=== PATIENT | female | born 1975 | race Caucasian/White ===

== ENCOUNTER → 2016-04-12 | Outpatient (REF) | payer BC | LOC: M LAB REF 12:52 | PROVIDERS: ATTEND Advanced Practice Midwife | DX: Z12.4 Encounter for screening for malignant neoplasm of cervix (principal) ==

== ENCOUNTER → 2016-04-13 | Outpatient (CLI) | payer BC ==
--- NOTE | 2016-04-13 10:51 | REPMRS ---
Patient History The patient states she had a clinical breast exam in 03/2016. Family history of prostate cancer in maternal uncle at age 50 or over. Saline implants in both breasts, 2007. Took hormonal contraceptives for 10 years. Digital Woman Screen Mammo: April 13, 2016 - Exam #: [id number] Bilateral CC and MLO view(s) were taken. Technologist: Soumya Rodríguez Technologist Prior study comparison: January 10, 2014, bilateral bilat screen digital mammo, performed at [facility] ([facility]). August 17, 2012, bilateral bilat screen digital mammo, performed at [facility] ([facility]). FINDINGS: There are scattered fibroglandular densities. There has been no change in the appearance of the mammogram from the prior studies. There is a moderate amount of residual fibroglandular tissue which is fairly symmetric. There is no interval development of dominant mass, architectural distortion, or clustered microcalcification suggestive of malignancy. The bilateral breast implants are symmetric and intact as before. Scattered lymph nodes are seen in the axilla. No significant changes when compared with prior studies. ASSESSMENT: BI-RADS/ACR category 2 mammogram. Benign finding(s). Recommendation Routine screening mammogram in 1 year (for women over age 40). This mammogram was interpreted with the aid of an FDA-approved computer-aided dectection system. A. Negative x-ray reports should not delay biopsy if a dominant or clinically suspicious mass is present. B. Four to eight percent of cancers are not identified by mammography. C. Adenosis and dense breast may obscure an underlying neoplasm. Electronically Signed By: Joshua Hancock MD 04/13/16 [id number]
== END ==
LOC: M WHC 09:01
PROVIDERS: ATTEND Advanced Practice Midwife
DX: Z12.31 Encounter for screening mammogram for malignant neoplasm of breast (principal)

== ENCOUNTER → 2016-04-13 | Outpatient (CLI) | payer BC ==
--- NOTE | 2016-04-13 11:20 | REP ---
Clinical: Hyponatremia . Comparison: 07/31/2013 . Technique: PA and lateral. Findings: The mediastinum and cardiac silhouette are normal. The lung shore are clear and without acute consolidation, effusion, or pneumothorax. The skeletal structures are intact and normal. Impression: 1. No acute cardiopulmonary process. Signed by Daniel Cox MD 04/13/2016 11:11 A
[2016-04-13 11:23] LABS: MEAN CORPUSCULAR HEMOGLOBIN 30.6 pg (27.0-33.0); MEAN CORPUSCULAR HGB CONC 33.8 g/dl (32.0-36.5); MEAN CORPUSCULAR VOLUME 90.5 fl (80.0-96.0); RED CELL DISTRIBUTION WIDTH 12.1 % (11.5-14.5); WHITE BLOOD COUNT 7.2 K/mm3 (4.0-10.0)
[2016-04-13 11:42] LABS: ALBUMIN 3.6 GM/DL (3.2-5.2); ALBUMIN/GLOBULIN RATIO 1.03 (1.00-1.93); ALKALINE PHOSPHATASE 48 U/L (45-117); ALT/SGPT 15 U/L (12-78); ANION GAP 6 MEQ/L (8-16); AST/SGOT 13 U/L (15-37); BILIRUBIN,TOTAL 0.5 MG/DL (0.2-1.0); BLOOD UREA NITROGEN 10 MG/DL (7-18); CALCIUM LEVEL 8.3 MG/DL (8.5-10.1); CARBON DIOXIDE LEVEL 28 MEQ/L (21-32); CHLORIDE LEVEL 107 MEQ/L (98-107); CHOLESTEROL LEVEL 234 MG/DL (<200); CREATININE FOR GFR 0.76 MG/DL (0.55-1.02); GLOMERULAR FILTRATION RATE > 60.0 (>58); GLUCOSE, FASTING 86 MG/DL (70-105); PERCENT SATURATION 27.8 % (13.2-37.4); POTASSIUM SERUM 4.3 MEQ/L (3.5-5.1); SODIUM LEVEL 141 MEQ/L (136-145); TOTAL IRON BINDING CAPACITY 306 UG/DL (250-450); TOTAL PROTEIN 7.1 GM/DL (6.4-8.2); TRIGLYCERIDES LEVEL 67 MG/DL (<150)
--- NOTE | 2016-04-13 14:01 | ECGEPIP ---
Stationary ECG Study [facility] Test Date: 2016-04-13 Pat Name: RADHA RICKS Department: Room: - Gender: F Bench Tool Maker: YOLANDA : 1975 Requested By: Brian Segura Order Number: [id number] Reading MD: Bashir Doshi Measurements Intervals [place] Rate: 60 P: 25 WA: 124 QRS: 80 QRSD: 86 T: 52 QT: 394 QTc: 396 Interpretive Statements SINUS RHYTHM Poor R-wave progression, low precordial voltages. Electronically Signed On 04-13-2016 14:01:17 EST by Bashir Doshi
== END ==
LOC: M LAB 10:27
PROVIDERS: ATTEND Family Medicine
DX: D64.9 Anemia, unspecified (principal); J45.909 Unspecified asthma, uncomplicated

== ENCOUNTER → 2017-07-03 | Outpatient (CLI) | payer BC | LOC: M WHC 07:56 | DX: Z12.31 Encounter for screening mammogram for malignant neoplasm of breast (principal); Z92.0 Personal history of contraception; Z98.82 Breast implant status | CPT/HCPCS: 77067 ==

== ENCOUNTER → 2017-08-01 | Outpatient (CLI) | payer BC ==
[2017-08-01 09:23] LABS: HEMATOCRIT 42.4 % (36.0-47.0); HEMOGLOBIN 14.2 g/dl (12.0-15.5); MEAN CORPUSCULAR HEMOGLOBIN 29.5 pg (27.0-33.0); MEAN CORPUSCULAR HGB CONC 33.5 g/dl (32.0-36.5); MEAN CORPUSCULAR VOLUME 88.1 fl (80.0-96.0); PLATELET COUNT, AUTOMATED 252 10^3/uL (150-450); RED BLOOD COUNT 4.81 10^6/uL (4.00-5.40); RED CELL DISTRIBUTION WIDTH 12.7 % (11.5-14.5)
[2017-08-01 09:42] LABS: ESTIMATED AVERAGE GLUCOSE 91 MG/DL (60-110); HEMOGLOBIN A1c 4.8 %
[2017-08-01 09:47] LABS: TOTAL 25(OH) VITAMIN D 22.8 NG/ML (30.0-100.0)
[2017-08-01 09:48] LABS: ALBUMIN 3.8 GM/DL (3.2-5.2); ALBUMIN/GLOBULIN RATIO 1.15 (1.00-1.93); ALKALINE PHOSPHATASE 41 U/L (45-117); ALT/SGPT 22 U/L (12-78); ANION GAP 9 MEQ/L (8-16); AST/SGOT 15 U/L (7-37); BILIRUBIN,TOTAL 0.6 MG/DL (0.2-1.0); BLOOD UREA NITROGEN 11 MG/DL (7-18); CALCIUM LEVEL 8.6 MG/DL (8.5-10.1); CARBON DIOXIDE LEVEL 24 MEQ/L (21-32); CHLORIDE LEVEL 107 MEQ/L (98-107); CHOLESTEROL LEVEL 240 MG/DL (<200); CREATININE FOR GFR 0.76 MG/DL (0.55-1.30); GLOMERULAR FILTRATION RATE > 60.0 (>58); GLUCOSE, FASTING 88 MG/DL (70-100); HDL CHOLESTEROL 57 MG/DL (>40); IRON (FE) 94 UG/DL (50-170); LDL CHOLESTEROL 164.4 MG/DL (<100); NON-HDL-C 183 MG/DL; PERCENT SATURATION 33.5 % (13.2-45.0); POTASSIUM SERUM 4.4 MEQ/L (3.5-5.1); SODIUM LEVEL 140 MEQ/L (136-145); TOTAL IRON BINDING CAPACITY 281 UG/DL (250-450); TOTAL PROTEIN 7.1 GM/DL (6.4-8.2); TRIGLYCERIDES LEVEL 93 MG/DL (<150)
== END ==
LOC: M LAB 08:45
DX: R53.83 Other fatigue (principal); D64.9 Anemia, unspecified

== ENCOUNTER → 2018-08-03 | Outpatient (CLI) | payer BC ==
[2018-08-03 09:41] LABS: HEMATOCRIT 39.6 % (36.0-47.0); HEMOGLOBIN 13.1 g/dl (12.0-15.5); MEAN CORPUSCULAR HEMOGLOBIN 29.4 pg (27.0-33.0); MEAN CORPUSCULAR HGB CONC 33.1 g/dl (32.0-36.5); PLATELET COUNT, AUTOMATED 282 10^3/uL (150-450); RED BLOOD COUNT 4.45 10^6/uL (4.00-5.40); WHITE BLOOD COUNT 8.3 10^3/uL (4.0-10.0)
[2018-08-03 10:13] LABS: ALBUMIN 3.7 GM/DL (3.2-5.2); ALT/SGPT 27 U/L (12-78); BILIRUBIN,TOTAL 0.5 MG/DL (0.2-1.0); BLOOD UREA NITROGEN 13 MG/DL (7-18); CALCIUM LEVEL 8.7 MG/DL (8.5-10.1); CARBON DIOXIDE LEVEL 28 MEQ/L (21-32); CHLORIDE LEVEL 106 MEQ/L (98-107); CHOLESTEROL LEVEL 186 MG/DL (<200); CHOLESTEROL RISK RATIO 2.952 (<5); CREATININE FOR GFR 0.76 MG/DL (0.55-1.30); GLOMERULAR FILTRATION RATE > 60.0 (>58); GLUCOSE, FASTING 78 MG/DL (70-100); HDL CHOLESTEROL 63 MG/DL (>40); LDL CHOLESTEROL 110 MG/DL (<100); NON-HDL-C 123 MG/DL; POTASSIUM SERUM 4.6 MEQ/L (3.5-5.1); SODIUM LEVEL 140 MEQ/L (136-145); THYROID STIMULATING HORMONE 0.809 uIU/ML (0.358-3.740); TOTAL PROTEIN 7.1 GM/DL (6.4-8.2); TRIGLYCERIDES LEVEL 64 MG/DL (<150)
--- NOTE | 2018-08-03 10:35 | REP ---
Chest two views HISTORY: Anemia Comparison: 04/13/2016 The lungs are clear. The heart is normal in size. The pulmonary vasculature is normal in appearance. The bony structure is intact. IMPRESSION: No acute disease. Electronically Signed by Ty William MD 08/03/2018 10:26 A
[2018-08-03 12:04] LABS: TOTAL 25(OH) VITAMIN D 42.2 NG/ML (30.0-100.0)
--- NOTE | 2018-08-04 00:28 | ECGEPIP ---
[facility] Test Date: 2018-08-03 Pat Name: RADHA RICKS Department: Room: - Gender: Female [employer]: BO : 1975 Requested By: Brian Segura Order Number: [id number] Reading MD: Bashir Mina Measurements Intervals [place] Rate: 65 P: 57 PA: 131 QRS: 77 QRSD: 82 T: 53 QT: 379 QTc: 397 Interpretive Statements SINUS RHYTHM Baseline artifact Electronically Signed on 08-04-2018 0:28:18 EDT by Bashir Mina
== END ==
LOC: M LAB 08:56
PROVIDERS: ATTEND Family Medicine
DX: D64.9 Anemia, unspecified (principal); E03.9 Hypothyroidism, unspecified

== ENCOUNTER → 2018-08-31 | Outpatient (CLI) | payer BC ==
--- NOTE | 2018-08-31 10:53 | REPMRS ---
Patient History The patient states she had a clinical breast exam in 08/2018. Family history of prostate cancer at age 50 or over in maternal uncle, breast cancer in maternal grandmother. Saline implants in both breasts, 2007. Took hormonal contraceptives for 10 years. 3D TOMOSYNTHESIS WAS PERFORMED. [facility]%. Digital Woman Screen Mammo: August 31, 2018 - Exam #: [id number] Bilateral MLO, CC, CCID, and MLOID view(s) were taken. Technologist: Sonia Heredia, Technologist Prior study comparison: July 03, 2017, digital woman screen mammo performed at [facility]. April 13, 2016, digital woman screen mammo performed at [facility]. FINDINGS: The breast tissue is heterogeneously dense. This may lower the sensitivity of mammography. There has been no change in the appearance of the mammogram from the prior studies. There is a moderate amount of residual fibroglandular tissue which is fairly symmetric. There is no interval development of dominant mass, areas of architectural distortion, or clustered microcalcification typical of malignancy. Assessment: BI-RADS/ACR category 1 mammogram. Negative Mammogram. Recommendation Routine screening mammogram in 1 year (for women over age 40). This mammogram was interpreted with the aid of an FDA-approved computer-aided dectection system. Electronically Signed By: Armand Marie MD 08/31/18 1639
== END ==
LOC: M WHC 07:41
PROVIDERS: ATTEND Advanced Practice Midwife
DX: Z12.31 Encounter for screening mammogram for malignant neoplasm of breast (principal); Z98.82 Breast implant status

== ENCOUNTER → 2018-08-31 | Outpatient (REF) | payer BC ==
[2018-09-05 14:07] LABS: HPV HYBRID CAPTURE II Negative (Negative)
== END ==
LOC: M LAB REF 17:52
PROVIDERS: ATTEND Advanced Practice Midwife
DX: Z12.4 Encounter for screening for malignant neoplasm of cervix (principal); R87.610 Atypical squamous cells of undetermined significance on cytologic smear of cervix (ASC-US)
CPT/HCPCS: 87624; G0123

== ENCOUNTER → 2019-01-09 | Outpatient (REF) | payer BC | LOC: M LAB REF 17:16 | PROVIDERS: ATTEND Advanced Practice Midwife | DX: R30.0 Dysuria (principal) ==

== ENCOUNTER → 2019-07-01 | Outpatient (CLI) | payer BC ==
--- NOTE | 2019-07-02 03:32 | REP ---
Clinical: Abnormal uterine bleeding. Uterine leiomyoma. Technique: Transabdominal pelvic ultrasound followed by transvaginal examination for better evaluation of the endometrium and adnexa with color Doppler evaluation of the ovaries. Findings: Bladder is unremarkable and measures 8.5 x 7.4 x 8.8 cm . Heterogeneous anteverted uterus measures 9.9 x 5.3 x 5.5 cm. The endometrial complex measures 13 mm thickness. Heterogeneous subserosal/pedunculated fundal fibroid is suspected and measures 3.8 x 3.7 x 5.4 cm. Heterogeneous posterior intramural fibroid measures 1.8 x 1.7 x 1.3 cm. Bilateral ovaries are normal in vascularity without evidence for torsion. Right ovary measures 2.6 x 1.5 x 1.7 cm ; R I = 0.50 . Left ovary measures 3.2 x 2.2 x 3.3 cm and includes multiple cysts measuring up to 2.6 cm and 2.1 cm diameter ; R I = 0.46 . No pelvic fluid or discrete adnexal abnormality. Impression: 1. Heterogeneous myomatous uterus with large is notable fundal fibroid measuring 5.4 cm. Endometrial complex thickened to 13 mm likely related to menstrual cycle. 2. Simple left ovarian cysts likely physiologic. Consider follow-up examination in 4-6 weeks to evaluate for resolution.
== END ==
LOC: M WHC 13:02
PROVIDERS: ATTEND Nurse Practitioner Women's Health
DX: N83.202 Unspecified ovarian cyst, left side (principal); N93.9 Abnormal uterine and vaginal bleeding, unspecified; D25.9 Leiomyoma of uterus, unspecified

== ENCOUNTER → 2019-12-17 | Outpatient (REF) | payer BC | LOC: M SFHCWAGY 16:59 | PROVIDERS: ATTEND Advanced Practice Midwife | DX: Z12.4 Encounter for screening for malignant neoplasm of cervix (principal); Z01.419 Encounter for gynecological examination (general) (routine) without abnormal findings ==

== ENCOUNTER → 2019-12-23 | Outpatient (CLI) | payer BC ==
--- NOTE | 2019-12-23 17:20 | REP ---
INDICATION: MARIAM SCR MAMMO/Z12.31. COMPARISON: 08/31/2018 as well as other prior exams. TECHNIQUE: Digital screening (2D) mammography was performed bilaterally. Routine MLO and CC views are performed without implant displacement. Additionally, breast tomosynthesis (3D mammography) was performed bilaterally in the CC and MLO projections, with bilateral breast implants displaced, and compared to the prior exam(s). FINDINGS: There is moderate fibroglandular tissue bilaterally. Volpara breast density is c. there is a 8 mm rounded nodular density on the right MLO implant displaced view, in the upper outer quadrant. This is not seen in the CC projection. No other mass is seen bilaterally. No suspicious clusters of microcalcifications are seen. The bilateral breast implants demonstrate no evidence of extracapsular rupture. The patient states her last clinical breast exam was November 2019. There is a family history of breast cancer in maternal grandmother. Tyrer-zick lifetime risk of breast cancer 13.3%. IMPRESSION: BI-RADS category 0 incomplete. There is an 8 mm nodular density in the upper-outer quadrant of the right breast only seen in the MLO projection with the implant displaced. Recommend spot-compression view right MLO and mL projections as well as a right axillary CC view all with the implants displaced. Ultrasound may also be necessary. This mammogram was read with the assistance of [employer], an FDA approved computer aided detection system for mammography. Negative x-ray reports should not delay surgical consultation if a dominant or clinically suspicious mass is present. Not all breast cancers can be identified by mammography. Therefore, we recommend that you continue to perform regular breast self-examination and physical examination and then promptly contact your physician of any concerns or changes. Adenosis and dense breasts may obscure an underlying neoplasm. Patient letter M0. <Electronically signed by Armand Marie > 12/23/19 0614
== END ==
LOC: M WHC 13:49
PROVIDERS: ATTEND Advanced Practice Midwife
DX: Z12.31 Encounter for screening mammogram for malignant neoplasm of breast (principal)

== ENCOUNTER → 2020-01-03 | Outpatient (CLI) | payer BC ==
--- NOTE | 2020-01-03 16:47 | REP ---
INDICATION: ADDITIONAL VIEWS RT BREAST. Screening mammography December 23, 2019 was BI-RADS category 0 because of a possible nodular density in the upper-outer quadrant of the right breast. Diagnostic imaging is recommended. COMPARISON: Comparison mammography December 23, 2019. Comparison is also made with August 31, 2018 prior mammography. TECHNIQUE: Magnified focal spot-compression CC MLO and true mL views are obtained. A laterally exaggerated CC view of the right breast is obtained. Targeted sonography is performed in the upper outer quadrant on the right. FINDINGS: Mammographic images demonstrate heterogeneously dense fibroglandular elements. On the MLO Mag view there is a nodular opacity but this is less conspicuous than on the screening studies. It is not otherwise visible. No new mammographic abnormality. The Volpara volumetric breast density pattern is C. Targeted sonography: Upper-outer quadrant right breast sonography demonstrates 3 simple cysts at 10 and 11 o'clock measuring 0.4, 0.8, and 0.5 cm in greatest diameter respectively. The 0.8 cm cyst may correspond to the mammographic findings. There is a normal appearing almost completely fat replaced lymph node in the axilla as well measuring 0.9 cm in greatest diameter. This has benign appearance. No sonographically suspicious finding. IMPRESSION: BIRADS/ACR category 2 benign mammogram and sonographic findings. This patient's Tyrer-Cuzick lifetime breast cancer risk assessment score is 13.3%. This mammogram was interpreted with the aid of an FDA-approved computer-aided detection system. RECOMMENDATION: Repeat screening mammography recommended 1 year (for women over 40). The patient letter being requested is M1. <Electronically signed by Chaim Jimenez > 01/03/20 [id number]
== END ==
LOC: M WHC 15:02
PROVIDERS: ATTEND Advanced Practice Midwife
DX: R92.2 Inconclusive mammogram (principal); N60.01 Solitary cyst of right breast

== ENCOUNTER → 2020-01-07 | Outpatient (REF) | payer BC | LOC: M PLALAB 09:58 | PROVIDERS: ATTEND Advanced Practice Midwife | DX: Z12.4 Encounter for screening for malignant neoplasm of cervix (principal) ==

== ENCOUNTER → 2020-03-27 | Outpatient (REF) | payer BC ==
[2020-03-27 10:27] LABS: BASO # 0.1 10^3/uL (0.0-0.2); BASO % 0.9 % (0.0-1.0); EOS # 0.6 10^3/uL (0.0-0.5); EOS % 7.2 % (0.0-3.0); HEMATOCRIT 41.5 % (36.0-47.0); HEMOGLOBIN 13.5 g/dl (12.0-15.5); LYMPH # 2.8 10^3/uL (1.5-5.0); LYMPH % 32.4 % (24.0-44.0); MEAN CORPUSCULAR HEMOGLOBIN 29.9 pg (27.0-33.0); MEAN CORPUSCULAR HGB CONC 32.5 g/dl (32.0-36.5); MEAN CORPUSCULAR VOLUME 91.8 fl (80.0-96.0); MONO # 0.6 10^3/uL (0.0-0.8); MONO % 6.8 % (0.0-5.0); NEUTROPHILS # 4.5 10^3/uL (1.5-8.5); NEUTROPHILS % 52.2 % (36.0-66.0); PLATELET COUNT, AUTOMATED 277 10^3/uL (150-450); RED BLOOD COUNT 4.52 10^6/uL (4.00-5.40); WHITE BLOOD COUNT 8.6 10^3/uL (4.0-10.0)
[2020-03-27 11:05] LABS: ALBUMIN 3.5 GM/DL (3.2-5.2); ALT/SGPT 20 U/L (12-78); BILIRUBIN,TOTAL 0.4 MG/DL (0.2-1.0); BLOOD UREA NITROGEN 11 MG/DL (7-18); CALCIUM LEVEL 8.9 MG/DL (8.5-10.1); CARBON DIOXIDE LEVEL 29 MEQ/L (21-32); CHLORIDE LEVEL 105 MEQ/L (98-107); CHOLESTEROL LEVEL 198 MG/DL (<200); CHOLESTEROL RISK RATIO 2.955 (<5); CREATININE FOR GFR 0.87 MG/DL (0.55-1.30); FREE T4 0.87 NG/DL (0.76-1.46); GLOMERULAR FILTRATION RATE > 60.0 (>58); GLUCOSE, FASTING 90 MG/DL (70-100); HDL CHOLESTEROL 67 MG/DL (>40); LDL CHOLESTEROL 119 MG/DL (<100); NON-HDL-C 131 MG/DL; POTASSIUM SERUM 4.9 MEQ/L (3.5-5.1); SODIUM LEVEL 139 MEQ/L (136-145); TOTAL PROTEIN 6.8 GM/DL (6.4-8.2); TRIGLYCERIDES LEVEL 60 MG/DL (<150)
[2020-03-27 11:08] LABS: TOTAL 25(OH) VITAMIN D 30.7 NG/ML (30.0-100.0)
== END ==
LOC: M PLALAB 08:05
PROVIDERS: ATTEND Nurse Practitioner Family
DX: Z13.228 Encounter for screening for other metabolic disorders (principal); E78.5 Hyperlipidemia, unspecified; K21.9 Gastro-esophageal reflux disease without esophagitis; E55.9 Vitamin D deficiency, unspecified

== ENCOUNTER → 2020-04-02 | Outpatient (CLI) | payer BC ==
[~2020-04-02] MED LIST: E-Z-GAS II EFFERVESCENT PACKET (SODIUM BICARB./CITRIC ACID/SIMETHICONE) As Ordered ONE; E-Z-HD 98% w/w 340GM SUSP BTL As Ordered ONE; E-Z-PAQUE 96% w/w SUSP 176GM BTL As Ordered ONE
--- NOTE | 2020-04-02 16:51 | REP ---
INDICATION: GERD. COMPARISON: None TECHNIQUE: This procedure was performed by Alesia Jackson, [facility], under the direct supervision of Dr. Jimenez. Images were reviewed with Dr. Jimenez prior to dictation. Liquid barium and gas producing crystals were given in the erect position, as well as liquid barium in the prone oblique position in order to perform a double contrast upper GI examination. FINDINGS: The mixing technician film shows no organomegaly or pathological masses. The intestinal gas pattern is unremarkable. The oral and pharyngeal stages of deglutition were unremarkable. Esophageal transport is prompt and efficient and there is no evidence of esophagitis, stricture, or mucosal ring. There is evidence of a hiatal hernia. There was no gastroesophageal reflux noted . The stomach darden are normally outlined. The rugal folds of the fundus are smooth and regular. There is prominent areae gastricae which could be indicative of gastritis. The duodenal darden are normally outlined. There is a diverticula of the duodenal sweep. The mucosal folds are smooth and regular. There is no duodenitis, peptic ulcer disease or neoplasm. The visualized portion of the proximal small bowel appears normal in course and caliber. IMPRESSION: 1. Prominent areae gastricae which could be indicative of gastritis. 2. Duodenal diverticula. 3. Small hiatal hernia. 0.3 minutes of fluoroscopy time was utilized for this procedure. Some fluoroscopic images are performed with last image hold technology. These images require no additional radiation. <Electronically signed by Alesia Jackson > 04/02/20 1625 <Electronically signed by Chaim Jimenez > 04/02/20 6005
== END ==
LOC: M RAD 10:07
PROVIDERS: ATTEND Nurse Practitioner Family
DX: K57.10 Diverticulosis of small intestine without perforation or abscess without bleeding (principal); K44.9 Diaphragmatic hernia without obstruction or gangrene; K21.9 Gastro-esophageal reflux disease without esophagitis

== ENCOUNTER → 2020-05-19 | Outpatient (REF) | payer BC | LOC: M LAB REF 21:05 | PROVIDERS: ATTEND Physician Assistant | DX: J02.9 Acute pharyngitis, unspecified (principal) ==

== ENCOUNTER → 2020-12-04 | Outpatient (CLI) | payer BC ==
[~2020-12-04] MED LIST changes: +CETI-24 PO; +CRES5TAB PO; -E-Z-GAS II EFFERVESCENT PACKET (SODIUM BICARB./CITRIC ACID/SIMETHICONE) As Ordered ONE; -E-Z-HD 98% w/w 340GM SUSP BTL As Ordered ONE; -E-Z-PAQUE 96% w/w SUSP 176GM BTL As Ordered ONE; +FAMO20TA PO
== END ==
LOC: M LABSMTC 09:45
PROVIDERS: ATTEND Anesthesiology
DX: Z01.812 Encounter for preprocedural laboratory examination (principal); Z20.822 Contact with and (suspected) exposure to COVID-19

== ENCOUNTER 2020-12-09 07:31 | Day surgery (SDC) | payer BC ==
[~2020-12-09] VITALS: Ht 172.7 cm; Wt 67.6 kg
[~2020-12-09 07:31] MED LIST changes: +NS 1,000 ML IV ONE
--- OUTSIDE RECORDS SUMMARY | 2020-12-09 07:35 | CCD ---
Author Author [facility] Organization [facility] Address Unknown Phone Unavailable Care Team [facility] Technician Name Role Phone Sheyla Garcia MD Unavailable Unavailable Sheyla Garcia MD Unavailable Unavailable Sheyla Garcia MD Unavailable Unavailable Sheyla Garcia MD Unavailable Unavailable Sheyla Garcia MD Unavailable Unavailable Sheyla Garcia MD Unavailable Unavailable Sheyla Garcia MD Unavailable Unavailable Sheyla Garcia MD Unavailable Unavailable Sheyla Garcia MD Unavailable Unavailable Sheyla Garcia MD Unavailable Unavailable Sheyla Garcia MD Unavailable Unavailable Sheyla Garcia MD Unavailable Unavailable Sheyla Garcia MD Unavailable Unavailable Sheyla Garcia MD Unavailable Unavailable Sheyla Garcia MD Unavailable Unavailable Sheyla Garcia MD Unavailable Unavailable Sheyla Garcia MD Unavailable Unavailable Sheyla Garcia MD Unavailable Unavailable Sheyla Garcia MD Unavailable Unavailable Sheyla Garcia MD Unavailable Unavailable Sheyla Garcia MD Unavailable Unavailable Sheyla Garcia MD Unavailable Unavailable Sheyla Garcia MD Unavailable Unavailable Sheyla Garcia MD Unavailable Unavailable Sheyla Garcia MD Unavailable Unavailable Sheyla Garcia MD Unavailable Unavailable Sheyla Garcia MD Unavailable Unavailable Radha, S Kavon MD Unavailable Unavailable Radha, S Kavon MD Unavailable Unavailable Radha, S Kavon MD Unavailable Unavailable Radha, S Kavon MD Unavailable Unavailable Radha, S Kavon MD Unavailable Unavailable Radha, S Kavon MD Unavailable Unavailable Radha, S Kavon MD Unavailable Unavailable Radha, S Kavon MD Unavailable Unavailable Radha, S Kavon MD Unavailable Unavailable Radha, S Kavon MD Unavailable Unavailable Radha, S Kavon MD Unavailable Unavailable Radha, S Kavon MD Unavailable Unavailable Radha, S Kavon MD Unavailable Unavailable Radha, S Kavon MD Unavailable Unavailable Radha, S Kavon MD Unavailable Unavailable Radha, S Kavon MD Unavailable Unavailable Radha, S Kavon MD Unavailable Unavailable Radha, S Kavon MD Unavailable Unavailable Radha, S Kavon MD Unavailable Unavailable Radha, S Kavon MD Unavailable Unavailable Radha, S Kavon MD Unavailable Unavailable Radha, S Kavon MD Unavailable Unavailable Radha, S Kavon MD Unavailable Unavailable Re-disclosure Warning The records that you are about to access may contain information from federally-assisted alcohol or drug abuse programs. If such information is present, then the following federally mandated warning applies: This information has been disclosed to you from records protected by federal confidentiality rules (42 CFR part 2). The federal rules prohibit you from making any further disclosure of this information unless further disclosure is expressly permitted by the written consent of the person to whom it pertains or as otherwise permitted by 42 CFR part 2. A general authorization for the release of medical or other information is NOT sufficient for this purpose. The Federal rules restrict any use of the information to criminally investigate or prosecute any alcohol or drug abuse patient.The records that you are about to access may contain highly sensitive health information, the redisclosure of which is protected by Article 27-F of the [facility] Public Health law. If you continue you may have access to information: Regarding HIV / AIDS; Provided by facilities licensed or operated by the [facility] Office of Mental Health; or Provided by the [facility] Office for People With Developmental Disabilities. If such information is present, then the following [facility] mandated warning applies: This information has been disclosed to you from confidential records which are protected by state law. State law prohibits you from making any further disclosure of this information without the specific written consent of the person to whom it pertains, or as otherwise permitted by law. Any unauthorized further disclosure in violation of state law may result in a fine or prison sentence or both. A general authorization for the release of medical or other information is NOT sufficient authorization for further disc losure. Family History Family Member Name Family Member Gender Family Member Status Date o f Status Description Data Source(s) Unknown Unknown Problem MEDENT ([facility], ) Unknown Unknown Problem MEDENT (Momo Tapia MD, ) Encounters Encounter Providers Location Date Indications Data Source(s ) Unknown [address] [facility] [place] [address] 09/21/2020 12:00:00 AM EDT [facility]CW1 ([facility] Unknown [address] [facility] [place] [address] 09/16/2020 12:00:00 AM EDT eCW1 ([facility]) Outpatient Attender: Kavon Garcia MD Main Office 09/10/2020 10:00:00 AM EDT MEDENT ([facility]) Outpatient [address] [facility] [place] [address] 07/31/2020 12:00:00 AM EDT eCW1 ([facility]) Unknown [address] [facility] [place] [address] 05/13/2020 12:00:00 AM EDT eCW1 ([facility]) Unknown [address] [facility] [place] [address] 04/29/2020 12:00:00 AM EST eCW1 ([facility]) Outpatient [address] [facility] [place] [address] 03/30/2020 12:00:00 AM EST eCW1 ([facility]) Unknown [address] [facility] [place] [address] 03/30/2020 12:00:00 AM EST eCW1 ([facility]) Outpatient [address] [facility] [place] [address] 03/20/2020 12:00:00 AM EST eCW1 ([facility]) Outpatient [address] [facility] [address] 03/16/2020 12:00:00 AM EST eCW1 ([facility]) Unknown [address] [facility] [place] [address] 01/07/2020 12:00:00 AM EST eCW1 ([facility]) Unknown [address] [facility] [place] [address] 12/31/2019 12:00:00 AM EST eCW1 ([facility]) Outpatient [address] [facility] [place] [address] 12/17/2019 12:00:00 AM EDT eCW1 ([facility]) Immunizations Vaccine Date Status Description Data Source(s) COVID-19 dose #2 given elsewhere Unspecified 06/09/2020 02:3 0:00 PM EDT completed eCW1 ([facility]) COVID-19 dose #2 given elsewhere Unspecified 06/09/2020 02:3 0:00 PM EDT completed eCW1 ([facility]) COVID-19 dose #2 given elsewhere Unspecified 06/09/2020 02:3 0:00 PM EDT completed eCW1 ([facility]) COVID-19 VACCINE Pfizer 05/20/2020 12:00:00 AM EDT completed [facility]SIIS Vaccine Series Complete: YESThis Data wa s Submitted to [facility] Via [employer]. COVID-19 dose #1 given elsewhere Unspecified 05/19/2020 02:3 0:00 PM EDT completed eCW1 ([facility]) COVID-19 dose #1 given elsewhere Unspecified 05/19/2020 02:3 0:00 PM EDT completed eCW1 ([facility]) COVID-19 dose #1 given elsewhere Unspecified 05/19/2020 02:3 0:00 PM EDT completed eCW1 ([facility]) COVID-19 VACCINE Pfizer 04/29/2020 12:00:00 AM EST completed [facility]SIIS Vaccine Series Complete: NOThis Data was Submitted to [facility] Via [employer]. Medications Medication Brand Name Start Date Product Form Dose Route Admi nistrative Instructions Pharmacy Instructions Status Indications Reaction Description Data Source(s) Metronidazole 500 MG Oral Tablet metroNIDAZOLE 500 MG metroN IDAZOLE 500 MG 09/16/2020 12:00:00 AM EDT 1.0 {tablet} active metroNIDAZOLE 500 MG eCW1 ([facility]) Metronidazole 500 MG Oral Tablet metroNIDAZOLE 500 MG metroN IDAZOLE 500 MG 09/16/2020 12:00:00 AM EDT 1.0 {tablet} active metroNIDAZOLE 500 MG eCW1 ([facility]) Calamine Phenolated 1 UNK 03/30/2020 12:00:00 AM EST active Calamine Phenolated 1 eCW1 ([facility]) Cephalexin 500 MG Oral Capsule Cephalexin 500 MG 03/30/2020 12:00:0 0 AM EST 1.0 {capsule} active Cephalexin 500 MG eCW1 ([facility]) Calamine Phenolated 1 UNK 03/30/2020 12:00:00 AM EST active Calamine Phenolated 1 eCW1 ([facility]) Famotidine 40 MG Oral Tablet Famotidine 40 MG 03/30/2020 12:00:00 A M EST 1.0 {tablet_at_bedtime} active Famotidine 4 0 MG eCW1 ([facility]) Famotidine 40 MG Oral Tablet Famotidine 40 MG 03/30/2020 12:00:00 A M EST 1.0 {tablet_at_bedtime} active Famotidine 4 0 MG eCW1 ([facility]) Cephalexin 500 MG Oral Capsule Cephalexin 500 MG 03/30/2020 12:00:0 0 AM EST 1.0 {capsule} active Cephalexin 500 MG eCW1 ([facility]) Calamine Phenolated 1 UNK 03/30/2020 12:00:00 AM EST active Calamine Phenolated 1 eCW1 ([facility]) Calamine Phenolated 1 K 03/30/2020 12:00:00 AM EST active Calamine Phenolated 1 eCW1 ([facility]) Cephalexin 500 MG Oral Capsule Cephalexin 500 MG 03/30/2020 12:00:0 0 AM EST 1.0 {capsule} active Cephalexin 500 MG eCW1 ([facility]) Cephalexin 500 MG Oral Capsule Cephalexin 500 MG 03/30/2020 12:00:0 0 AM EST 1.0 {capsule} active Cephalexin 500 MG eCW1 ([facility]) Famotidine 40 MG Oral Tablet Famotidine 40 MG 03/30/2020 12:00:00 A M EST 1.0 {tablet_at_bedtime} active Famotidine 4 0 MG eCW1 ([facility]) Cephalexin 500 MG Oral Capsule Cephalexin 500 MG 03/30/2020 12:00:0 0 AM EST 1.0 {capsule} active Cephalexin 500 MG eCW1 ([facility]) Famotidine 40 MG Oral Tablet Famotidine 40 MG 03/30/2020 12:00:00 A M EST 1.0 {tablet_at_bedtime} active Famotidine 4 0 MG eCW1 ([facility]) Calamine Phenolated 1 UNK 03/30/2020 12:00:00 AM EST active Calamine Phenolated 1 eCW1 ([facility]) Famotidine 40 MG Oral Tablet Famotidine 40 MG 03/30/2020 12:00:00 A M EST 1.0 {tablet_at_bedtime} active Famotidine 4 0 MG eCW1 ([facility]) Lo Loestrin Fe 1 MG-10 MCG / 10 MCG Lo Loestrin Fe 1 MG-10 M CG / 10 MCG 12/17/2019 12:00:00 AM EDT 1.0 {tablet} active Lo Loestrin Fe 1 MG- 10 MCG / 10 MCG eCW1 ([facility]) Lo Loestrin Fe 1 MG-10 MCG / 10 MCG Lo Loestrin Fe 1 MG-10 M CG / 10 MCG 12/17/2019 12:00:00 AM EDT 1.0 {tablet} active Lo Loestrin Fe 1 MG- 10 MCG / 10 MCG eCW1 ([facility]) Lo Loestrin Fe 1 MG-10 MCG / 10 MCG Lo Loestrin Fe 1 MG-10 M CG / 10 MCG 12/17/2019 12:00:00 AM EDT 1.0 {tablet} active Lo Loestrin Fe 1 MG- 10 MCG / 10 MCG eCW1 ([facility]) Lo Loestrin Fe 1 MG-10 MCG / 10 MCG Lo Loestrin Fe 1 MG-10 M CG / 10 MCG 12/17/2019 12:00:00 AM EDT 1.0 {tablet} active Lo Loestrin Fe 1 MG- 10 MCG / 10 MCG eCW1 ([facility]) Insurance Providers Payer name Policy type / Coverage type Policy ID Covered constitution party ID Covered constitution party's relationship to kamara Policy Kamara Plan Information BC/BS Of [place] [id number] Family Depende nt EXCELLUS BCBS FEDERAL [id number] HU2 [id number] [place] 306/806 [id number] SP [id number] [place] PPO 302/307 [id number] SP [id number] [employer] BCBS B [id number] S [id number] 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 [id number] [place] B [id number] P [id number] SELF PAY ONLY OTHER1 [facility] Health Maintenance Organization ([facility]) [id number] Family Dependent [id number] [place] B [id number] P [id number] [facility] Health Maintenance Organization (O) [id number] Family Dependent [id number] [employer] FEDERAL [id number] [facility] Health Maintenance Organization (O) [id number] Family Dependent [place] 302/307 [id number] SP [id number] BC BS [place] FED[place] [id number] [place] 306/806 [id number] SP [id number] 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 [id number] Problems, Conditions, and Diagnoses Code Display Name Description Problem Type Effective Dates Data Source(s) 83923693 Diarrhea Diarrhea Problem 09/10/2020 12:00:00 AM ED T MEDENT ([facility]) Z98.82 [id number] Hx of breast augmentation Problem 03/26/2020 12:00:00 AM EST eCW1 ([facility]) E55.9 [id number] Vitamin D deficiency Problem 03/20/2020 12:0 0:00 AM EST eCW1 ([facility]) E78.5 Hyperlipidemia Hyperlipidemia Problem 03/20/2020 12:00: 00 AM EST eCW1 ([facility]) K21.9 Gastroesophageal reflux disease Gastroesophageal reflu x disease Problem 03/20/2020 12:00:00 AM EST eCW1 ([facility]) Surgeries/Procedures Procedure Description Date Indications Data Source(s) OFFICE OUTPATIENT NEW 30 MINUTES 09/10/2020 12:00:00 A M EDT MEDENT ([facility]) Results ID Date Data Source PAP REQUEST FOR SERVICE 12/17/2019 12:00:00 AM EDT eCW1 ([facility]) Name Value Range Interpretation Code Description Data Meggan rce(s) Supporting Document(s) PAP REQUEST FOR SERVICE eCW1 ( [facility]) Procedure Social History Code Duration Value Status Description Data Source(s ) Smoking 07/31/2020 12:00:00 AM EDT Never Smoker completed Never S moker eCW1 ([facility]) Smoking 07/31/2020 12:00:00 AM EDT Never Smoker completed Never S moker eCW1 ([facility]) Smoking 07/31/2020 12:00:00 AM EDT Never Smoker completed Never S moker eCW1 ([facility]) Smoking 03/30/2020 12:00:00 AM EST Never Smoker completed Never S moker eCW1 ([facility]) Smoking 03/30/2020 12:00:00 AM EST Never Smoker completed Never S moker eCW1 ([facility]) Smoking 03/30/2020 12:00:00 AM EST Never Smoker completed Never S moker eCW1 ([facility]) Smoking 03/30/2020 12:00:00 AM EST Never Smoker completed Never S moker eCW1 ([facility]) Smoking 03/30/2020 12:00:00 AM EST Never Smoker completed Never S moker eCW1 ([facility]) Smoking 03/20/2020 12:00:00 AM EST Never Smoker completed Never S moker eCW1 ([facility]) Smoking 12/12/2019 12:00:00 AM EDT Never Smoker completed Never S moker eCW1 ([facility]) Smoking 12/12/2019 12:00:00 AM EDT Never Smoker completed Never S moker eCW1 ([facility]) Smoking 12/12/2019 12:00:00 AM EDT Never Smoker completed Never S moker eCW1 ([facility]) Smoking 12/12/2019 12:00:00 AM EDT Never Smoker completed Never S moker eCW1 ([facility]) Vital Signs ID Date Data Source UNK Name Value Range Interpretation Code Description Data Source(s) Diastolic blood pressure 86 mm[Hg] 86 mm[Hg] MEDENT ([facility]) Heart rate 66 /min 66 /min MED[facility] ([facility]) Body mass index (BMI) [Ratio] 23.1 kg/m2 23.1 k g/m2 MEDENT ([facility]) Body weight 68.947 kg 68.947 kg MEDENT ([facility]) Body height 68 [in_i] 68 [in_i] MEDENT ([facility]) 5'8" Body weight 152.00 [lb_av] 152.00 [lb_av] MEDEN T ([facility]) Systolic blood pressure 124 mm[Hg] 124 mm[Hg] M EDENT ([facility]) Body temperature 96.8 [degF] 96.8 [degF] MEDENT ([facility]) Body weight 146 [lb_av] 146 [lb_av] eCW1 ([facility]) Body height 68.5 [in_i] 68.5 [in_i] W1 ([facility]) Body mass index (BMI) [Ratio] 21.87 kg/m2 21.87 kg/m2 eCW1 ([facility]) Heart rate 74 /min 74 /min eCW1 ([facility]) Respiratory rate 18 /min 18 /min eCW1 ([facility]) Body temperature 98.7 [degF] 98.7 [degF] eCW1 ( [facility]) Systolic blood pressure 112 mm[Hg] 112 mm[Hg] e CW1 ([facility]) Diastolic blood pressure 72 mm[Hg] 72 mm[Hg] eCW1 ([facility]) Body weight 147 [lb_av] 147 [lb_av] eCW1 ([facility]) Body weight 67.13 kg 67.13 kg eCW1 ([facility]) Body height 68.5 [in_i] 68.5 [in_i] eCW1 ([facility]) Body mass index (BMI) [Ratio] 22.02 kg/m2 22.02 kg/m2 eCW1 ([facility]) Heart rate 78 /min 78 /min eCW1 ([facility]) Respiratory rate 18 /min 18 /min eCW1 ([facility]) Body temperature 98.5 [degF] 98.5 [degF] eCW1 ( [facility]) Systolic blood pressure 110 mm[Hg] 110 mm[Hg] e CW1 ([facility]) Diastolic blood pressure 70 mm[Hg] 70 mm[Hg] eCW1 ([facility]) Body weight 147.8 [lb_av] 147.8 [lb_av] eCW1 ([facility]) Body height 68.5 [in_i] 68.5 [in_i] eCW1 ([facility]) Body mass index (BMI) [Ratio] 22.14 kg/m2 22.14 kg/m2 eCW1 ([facility]) Heart rate 85 /min 85 /min eCW1 ([facility]) Respiratory rate 18 /min 18 /min eCW1 ([facility]) Body temperature 98.5 [degF] 98.5 [degF] eCW1 ( [facility]) Systolic blood pressure 118 mm[Hg] 118 mm[Hg] e CW1 ([facility]) Diastolic blood pressure 78 mm[Hg] 78 mm[Hg] eCW1 ([facility]) Body weight 148 [lb_av] 148 [lb_av] eCW1 ([facility]) Body weight 67.13 kg 67.13 kg eCW1 ([facility]) Body height 68.5 [in_i] 68.5 [in_i] eCW1 ([facility]) Body mass index (BMI) [Ratio] 22.17 kg/m2 22.17 kg/m2 eCW1 ([facility]) Heart rate 71 /min 71 /min eCW1 ([facility]) Respiratory rate 18 /min 18 /min eCW1 ([facility]) Body temperature 97.7 [degF] 97.7 [degF] eCW1 ( [facility]) Systolic blood pressure 110 mm[Hg] 110 mm[Hg] e CW1 ([facility]) Diastolic blood pressure 80 mm[Hg] 80 mm[Hg] eCW1 ([facility]) Body weight 148.0 [lb_av] 148.0 [lb_av] eCW1 ([facility]) Body height 68.5 [in_i] 68.5 [in_i] eCW1 ([facility]) Body mass index (BMI) [Ratio] 22.17 kg/m2 22.17 kg/m2 eCW1 ([facility]) Systolic blood pressure 122 mm[Hg] 122 mm[Hg] e CW1 ([facility]) Diastolic blood pressure 76 mm[Hg] 76 mm[Hg] eCW1 ([facility]) Body weight 148.0 [lb_av] 148.0 [lb_av] eCW1 ([facility]) Body height 68.5 [in_i] 68.5 [in_i] eCW1 ([facility]) Body mass index (BMI) [Ratio] 22.17 kg/m2 22.17 kg/m2 eCW1 ([facility]) Systolic blood pressure 122 mm[Hg] 122 mm[Hg] e CW1 ([facility]) Diastolic blood pressure 76 mm[Hg] 76 mm[Hg] eCW1 ([facility]) Patient Treatment Plan of Care Planned Activity Planned Date Details Description Data Source (s) Metronidazole 500 MG Oral Tablet 09/16/2020 12:00:00 AM EDT eCW1 ([facility]) Metronidazole 500 MG Oral Tablet 09/16/2020 12:00:00 AM EDT eCW1 ([facility]) Cephalexin 500 MG Oral Capsule 03/30/2020 12:00:00 AM EST eCW1 ([facility]) Famotidine 40 MG Oral Tablet 03/30/2020 12:00:00 AM EST eCW1 ([facility]) Calamine Phenolated 1 03/30/2020 12:00:00 AM EST eCW1 ([facility]) Famotidine 40 MG Oral Tablet 03/30/2020 12:00:00 AM EST eCW1 ([facility]) Calamine Phenolated 1 03/30/2020 12:00:00 AM EST eCW1 ([facility]) Cephalexin 500 MG Oral Capsule 03/30/2020 12:00:00 AM EST eCW1 ([facility]) Calamine Phenolated 1 03/30/2020 12:00:00 AM EST eCW1 ([facility]) Famotidine 40 MG Oral Tablet 03/30/2020 12:00:00 AM EST eCW1 ([facility]) Cephalexin 500 MG Oral Capsule 03/30/2020 12:00:00 AM EST eCW1 ([facility]) Calamine Phenolated 1 03/30/2020 12:00:00 AM EST eCW1 ([facility]) Famotidine 40 MG Oral Tablet 03/30/2020 12:00:00 AM EST eCW1 ([facility]) Cephalexin 500 MG Oral Capsule 03/30/2020 12:00:00 AM EST eCW1 ([facility]) Calamine Phenolated 1 03/30/2020 12:00:00 AM EST eCW1 ([facility]) Famotidine 40 MG Oral Tablet 03/30/2020 12:00:00 AM EST eCW1 ([facility]) Cephalexin 500 MG Oral Capsule 03/30/2020 12:00:00 AM EST eCW1 ([facility]) Lo Loestrin Fe 1 MG-10 MCG / 10 MCG 12/17/2019 12:00:00 AM EDT eCW1 ([facility]) Lo Loestrin Fe 1 MG-10 MCG / 10 MCG 12/17/2019 12:00:00 AM EDT eCW1 ([facility]) Lo Loestrin Fe 1 MG-10 MCG / 10 MCG 12/17/2019 12:00:00 AM EDT eCW1 ([facility]) Lo Loestrin Fe 1 MG-10 MCG / 10 MCG 12/17/2019 12:00:00 AM EDT eCW1 ([facility])
--- OUTSIDE RECORDS SUMMARY | 2020-12-09 07:35 | CCD ---
Author Author [facility] Organization [facility] Address Unknown Phone Unavailable Care Team Providers Care Machine Printer Hose Name Role Phone Linette Nelson PROBLEMS Type Condition ICD9-CM Code [id number] Code Onset Dates Condition S tatus W/U Status Risk SNOMED Code Notes Problem Gastroesophageal reflux disease K21.9 Active confi rmed 045338959 Problem Hx of breast augmentation Z98.82 Active confirmed 238668484 Problem Abnormal uterine bleeding N93.9 Active confirmed 11184696747849 Problem Hyperlipidemia E78.5 Active confirmed 51308 004 Problem Vitamin D deficiency E55.9 Active confirmed 51341953 ALLERGIES No Known Allergies ENCOUNTERS from 1975 to 2020-09-16 Encounter Location Date Provider Diagnosis [facility] [address] [place] [address] [place] [address] Aug, Linette Nelson IMMUNIZATIONS Vaccine Route Administration Date Status COVID-19 dose #2 given elsewhere Unspecified Unknown May Administered COVID-19 dose #1 given elsewhere Unspecified Unknown Apr Administered SOCIAL HISTORY Tobacco Use: Social History Observation Description Date Details (start date - stop date) Never Smoker Sex Assigned At : Social History Observation Description Sex Assigned At Unknown Education: Question Answer Notes Level of Education: Finished College Audit Question Answer Notes Interpretation: Alcohol Education Total Score: 3 Language: Question Answer Notes Languages spoken: Swazi Mandaeism: Question Answer Notes Mandaeism 33 None Sexual Hx: Question Answer Notes Had sex in the last 12 months (vaginal, oral, or anal)? Yes LMP: 06/2020 Have you ever had an STD? No Prevention Strategies discussed: Other with Men only Use protection? No Drug and Alcohol Question Answer Notes Interpretation: No problems reported Total Score: 0 Alcohol Screening: Question Answer Notes Did you have a drink containing alcohol in the past year? Ye s Points 1 Interpretation Negative How often did you have a drink containing alcohol in t he past year? Monthly or less (1 point) Tobacco Use: Question Answer Notes Are you a: never smoker never smoker REASON FOR REFERRAL No Information VITAL SIGNS No information MEDICATIONS Medication SIG (Take, Route, Frequency, Duration) Notes Start Da te End Date Status metroNIDAZOLE 500 MG 1 tablet Orally Twice a day for 7 day(s) Aug, Active Omeprazole 40 MG 1 capsule 30 minutes before morning meal Orally On ce a day Active Crestor 5 MG 1 tablet Orally Once a day for 90 day(s) Active PROCEDURES No Information RESULTS No Results REASON FOR VISIT Rx request MEDICAL (GENERAL) HISTORY Type Description Date Medical History hypercholesterolemia Medical History uterine fibroids Medical History indigestion Surgical History c section x 2 Surgical History colposcopy Surgical History cryo surgery Surgical History leep Surgical History breast augmentation - 2006 below muscle Hospitalization History childbirth Goals Section No Information Health Concerns No Information MEDICAL EQUIPMENT No Information MENTAL STATUS No Information FUNCTIONAL STATUS No Information ASSESSMENTS No Information PLAN OF TREATMENT Medication Medication Name Sig Start Date Stop Date Omeprazole 40 MG 1 capsule 30 minutes before morning meal Orally Once a day metroNIDAZOLE 500 MG 1 tablet Orally Twice a day for 7 day(s) Aug, Next Appt Details Provider Name:Kelly Bautista, 2020-09-23 07:30:00 AM, [address] [facility], , [place], [address], Insurance Providers Payer Name Payer Address Payer Phone Insured Name Patient Relati onship to Insured Coverage Start Date Coverage End Date BCBS OF [facility] [id number] [facility] [id number] RADHA RICKS self
--- OUTSIDE RECORDS SUMMARY | 2020-12-09 07:35 | CCD | Continuity of Care Document ---
Author Author Anabel GARCIA M.D. Organization Unknown Address [address] [place] [address] Phone [phone] Care Team Providers Care Marketing Planning Manager Name Role Phone aPula Bautista [employer] [phone] Problems Active Problems Provider Date Diarrhea Kavon Garcia M.D. Onset: 09/11/19 21 Social History Type Date Description Comments Sex Unknown ETOH Use Occasionally Tobacco Use Start: Unknown Patient has never smoked Allergies, Adverse Reactions, Alerts Description No Known Drug Allergies Medications Active Medications SIG Qnty Indications Ordering Provide r Date Rosuvastatin Calcium 5mg Tablets Take 1 Tablet By Mouth Every Day Unknown Omeprazole 40mg Capsules DR Take 1 Capsule By Mouth Every Day 30 Minutes Before Breakfast U nknown Cetirizine HCL 10mg Tablets Unknown Hydrochlorothiazide 12.5mg Tablets Unknown Immunizations Description No Information Available Vital Signs Date Vital Result Comment 09/10/2020 10:26am Height 68 inches 5'8" Weight 152.00 lb BP Systolic 124 mmHg BP Diastolic 86 mmHg Heart Rate 66 /min BMI (Body Mass Index) 23.1 kg/m2 Weight 68.947 kg Body Temperature 96.8 F Results Description No Information Available Procedures Date Code Description Status 09/10/2020 83700 Office/Outpatient New Low MDM 30 -44 Minutes Completed Medical Devices Description No Information Available Encounters Type Date Location Provider Dx Diagnosis Office Visit 09/10/2020 10:00a Main Office Kavon Garcia M.D. R 12 Heartburn Assessments Date Code Description Provider 09/10/2020 R12 Heartburn Kavon miles M.D. Plan of Treatment Future Appointment(s):* 10/14/2020 2:00 pm - Kavon Garcia M.D. at Main Office 09/10/2020 - Kavon Garcia M.D.* R12 Heartburn* Comments:* 45 yo wf who presents for an egd for a chronic h/o heartburn. No c/o abdominal pain, weight loss, change in bowel habits, or rectal bleeding. No family h/o colon cancer. No h/o chest pain, or sob. Plan:1. Egd + biopsies.2. Omeprazole 40 mgs po qam3. Informed consent. Functional Status Description No Information Available Mental Status Description No Information Available Referrals Description No Information Available
--- OUTSIDE RECORDS SUMMARY | 2020-12-09 07:35 | CCD ---
Author Author [facility] Organization [facility] Address Unknown Phone Unavailable Care Team Providers Care Container Finisher Name Role Phone Kelly Bautista Unavailable PROBLEMS Type Condition ICD9-CM Code SMO81-NK Code Onset Dates Condition S tatus W/U Status Risk SNOMED Code Notes Problem Gastroesophageal reflux disease K21.9 Active confi rmed [id number] Problem Hx of breast augmentation Z98.82 Active confirmed 005588457 Problem Abnormal uterine bleeding N93.9 Active confirmed [id number] Problem Hyperlipidemia E78.5 Active confirmed 88068 004 Problem Vitamin D deficiency E55.9 Active confirmed 84958693 ALLERGIES No Known Allergies ENCOUNTERS from 1975 to 2020-09-21 Encounter Location Date Provider Diagnosis [address] [phone] [place] [address] Sep, Kelly Jassmariana IMMUNIZATIONS Vaccine Route Administration Date Status COVID-19 dose #2 given elsewhere Unspecified Unknown Apr 2020 Administered COVID-19 dose #1 given elsewhere Unspecified Unknown Mar 2020 Administered SOCIAL HISTORY Tobacco Use: Social History Observation Description Date Details (start date - stop date) Never Smoker Sex Assigned At : Social History Observation Description Sex Assigned At Unknown Education: Question Answer Notes Level of Education: Finished College Audit Question Answer Notes Total Score: 3 Interpretation: Alcohol Education Language: Question Answer Notes Languages spoken: Bulgarian Mandaeism: Question Answer Notes Mandaeism 33 None Sexual Hx: Question Answer Notes Had sex in the last 12 months (vaginal, oral, or anal)? Yes LMP: 06/2020 Have you ever had an STD? No Prevention Strategies discussed: Other with Men only Use protection? No Drug and Alcohol Question Answer Notes Total Score: 0 Interpretation: No problems reported Alcohol Screening: Question Answer Notes Did you [...] Orally Once a day for 90 day(s) takes every oth er day Active PROCEDURES No Information RESULTS No Results REASON FOR VISIT Cancel Appointment Request MEDICAL (GENERAL) HISTORY Type Description Date Medical [...] Twice a day for 7 day(s) Aug, Insurance Providers Payer Name Payer Address Payer Phone Insured Name Patient Relati onship to Insured Coverage Start Date Coverage End Date BCBS [facility] [id number] [facility] [id number] RADHA RICKS self
--- OUTSIDE RECORDS SUMMARY | 2020-12-09 07:35 | CCD | Continuity of Care Document ---
Author Author Anabel GARCIA M.D. Organization Unknown Address [address] [place] [address] Phone [phone] Care Team Providers Care Armhole Feller Handstitching Machine Name Role Phone Paula Bautista SUPERVISOR [employer] Problems Active Problems Provider Date Diarrhea Kavon [...] F Results Description No Information Available Procedures Description No Information Available Medical Devices Description No Information Available Encounters Description No Information Available Assessments Date Code Description Provider 09/10/2020 R12 [...]
[2020-12-09] MEDS ORDERED: propofoL 500 MG/50 ML VIAL As Ordered ONE (09:10)
[2020-12-09] MEDS ORDERED: LIDOCAINE 2% 100MG/5ML SDV (FOR ANES.) As Ordered ONE (09:10)
[2020-12-09] MEDS ORDERED: fentaNYL 100 MCG/2 ML INJECTION (J3010) As Ordered ONE (09:10)
--- NOTE | 2020-12-09 09:23 | ROOR ---
Patient Name: Anabel Liz Procedure Date: 12/09/2020 9:05 AM Date of : 1975 Age: 45 Room: [facility] Gender: Female Note Status: Finalized Procedure: Upper Endoscopy + Biopsies Indications: Heartburn, Failure to respond to medical treatment, Exclusion of Toledo's esophagus Providers: Kavon Garcia MD Referring MD: Paula Bautista Requesting Provider: Medicines: Monitored Anesthesia Care Complications: No immediate complications. Procedure: Pre-Anesthesia Assessment: - The heart rate, respiratory rate, oxygen saturations, blood pressure, adequacy of pulmonary ventilation, and response to care were monitored throughout the procedure. The Endoscope was introduced through the mouth, and advanced to the second part of duodenum. The upper GI endoscopy was accomplished without difficulty. The patient tolerated the procedure well. Findings: The Z-line was regular and was found 40 cm from the incisors. Multiple biopsies were obtained with cold forceps for evaluation to rule out Toledo's Esophagus randomly at the gastroesophageal junction. No other significant abnormalities were identified in a careful examination of the stomach. Biopsies were taken with a cold forceps in the gastric antrum for Helicobacter pylori testing. The exam of the duodenum was otherwise normal. Impression: - Z-line regular, 40 cm from the incisors. - Multiple biopsies were obtained at the gastroesophageal junction. - Biopsies were taken with a cold forceps for Helicobacter pylori testing. - The examination was otherwise normal. Recommendation: - Patient has a contact number available for emergencies. The signs and symptoms of potential delayed complications were discussed with the patient. Return to normal activities tomorrow. Written discharge instructions were provided to the patient. - High fiber diet. - Discharge patient to home. - Continue present medications. - Await pathology results. - Telephone GI clinic for pathology results in 1 week. - Perform a RUQ ultrasound at appointment to be scheduled. Procedure Code(s): --- Professional --- 79109, Esophagogastroduodenoscopy, flexible, transoral; with biopsy, single or multiple Diagnosis Code(s): --- Professional --- R12, Heartburn CPT copyright 2019 [employer]. All rights reserved. The codes documented in this report are preliminary and upon ventilation equipment tender review may be revised to meet current compliance requirements. Kavon Garcia MD Kavon Garcia MD 12/09/2020 9:22:47 AM Electronically signed by Kavon Garcia MD Number of Addenda: 0 Note Initiated On: 12/09/2020 9:05 AM Estimated Blood Loss: Estimated blood loss: none.
[2020-12-09 09:41] VITALS: BP 137/89
== END 2020-12-09 09:43 | disposition home or self-care (01) ==
LOC: M OPP 07:31
PROVIDERS: ATTEND Internal Medicine Gastroenterology
DX: R12 Heartburn (principal); K29.50 Unspecified chronic gastritis without bleeding; Z79.899 Other long term (current) drug therapy
CPT/HCPCS: 43239; 88305; J3010

== ENCOUNTER → 2020-12-15 | Outpatient (CLI) | payer BC ==
[~2020-12-15] MED LIST changes: -NS 1,000 ML IV ONE
--- NOTE | 2020-12-15 10:48 | REP ---
INDICATION: HEARTBURN. COMPARISON: None. TECHNIQUE: Real-time sonographic evaluation of right upper quadrant performed. FINDINGS: The gallbladder demonstrates no evidence of intraluminal sludge or calculi, wall thickening or pericholecystic fluid. There is no intrahepatic or extrahepatic biliary dilatation, common bile duct measures 3 mm in maximum diameter. The liver demonstrates homogeneous echotexture with no gross mass. The pancreas demonstrates homogeneous echotexture with no gross mass. The right kidney demonstrates no hydronephrosis, with a normal size of 10.1 cm in length. No free fluid is seen. IMPRESSION: Negative right upper quadrant ultrasound. <Electronically signed by Armand Marie > 12/15/20 1042
== END ==
LOC: M RAD 07:47
PROVIDERS: ATTEND Internal Medicine Gastroenterology
DX: R12 Heartburn (principal)

== ENCOUNTER → 2021-04-27 | Outpatient (REF) | payer BC | LOC: M PLALAB 08:59 | PROVIDERS: ATTEND Advanced Practice Midwife | DX: Z12.4 Encounter for screening for malignant neoplasm of cervix (principal) ==

== ENCOUNTER → 2021-05-07 | Outpatient (CLI) | payer BC ==
[2021-05-07 09:30] LABS: HEMATOCRIT 39.5 % (36.0-47.0); HEMOGLOBIN 13.1 g/dl (12.0-15.5); MEAN CORPUSCULAR HEMOGLOBIN 30.4 pg (27.0-33.0); MEAN CORPUSCULAR HGB CONC 33.2 g/dl (32.0-36.5); MEAN CORPUSCULAR VOLUME 91.6 fl (80.0-96.0); PLATELET COUNT, AUTOMATED 251 10^3/uL (150-450); RED BLOOD COUNT 4.31 10^6/uL (4.00-5.40); WHITE BLOOD COUNT 6.8 10^3/uL (4.0-10.0)
[2021-05-07 10:04] LABS: ALT/SGPT 32 U/L (12-78); BLOOD UREA NITROGEN 11 MG/DL (7-18); CALCIUM LEVEL 8.7 MG/DL (8.5-10.1); CARBON DIOXIDE LEVEL 31 MEQ/L (21-32); CHLORIDE LEVEL 106 MEQ/L (98-107); CREATININE FOR GFR 0.75 MG/DL (0.55-1.30); GLOMERULAR FILTRATION RATE > 60.0 (>58); GLUCOSE, FASTING 84 MG/DL (70-100); POTASSIUM SERUM 3.9 MEQ/L (3.5-5.1); SODIUM LEVEL 141 MEQ/L (136-145)
[2021-05-07 10:05] LABS: ALBUMIN 3.7 GM/DL (3.2-5.2); BILIRUBIN,TOTAL 0.4 MG/DL (0.2-1.0); CHOLESTEROL LEVEL 235 MG/DL (<200); CHOLESTEROL RISK RATIO 2.901 (<5); HDL CHOLESTEROL 81 MG/DL (>40); IRON (FE) 81 UG/DL (50-170); LDL CHOLESTEROL 138 MG/DL (<100); NON-HDL-C 154 MG/DL; PERCENT SATURATION 24.7 % (13.2-45.0); TOTAL IRON BINDING CAPACITY 328 UG/DL (250-450); TOTAL PROTEIN 6.9 GM/DL (6.4-8.2); TRIGLYCERIDES LEVEL 82 MG/DL (<150)
[2021-05-07 10:07] LABS: ESTRADIOL 238.7 PG/ML; FOLLICLE STIMULATING HORMONE 3.5 mIU/mL; TOTAL 25(OH) VITAMIN D 37.7 NG/ML (30.0-100.0); VITAMIN B12 LEVEL 392 PG/ML (247-911)
== END ==
LOC: M LAB 08:28
PROVIDERS: ATTEND Family Medicine
DX: D64.9 Anemia, unspecified (principal); R53.83 Other fatigue; E03.9 Hypothyroidism, unspecified; I10 Essential (primary) hypertension

== ENCOUNTER → 2021-06-10 | Outpatient (CLI) | payer BC | LOC: M WHC 06:48 | PROVIDERS: ATTEND Advanced Practice Midwife | DX: Z12.31 Encounter for screening mammogram for malignant neoplasm of breast (principal); N92.6 Irregular menstruation, unspecified; D25.9 Leiomyoma of uterus, unspecified ==

== ENCOUNTER → 2021-12-06 | Outpatient (CLI) | payer BC ==
[~2021-12-06] MED LIST changes: +OMEP-173 PO; +ROSU20TA5 PO; +TRIA37.5 PO; +VITMTA PO
== END ==
LOC: M LABSMTC 09:06
PROVIDERS: ATTEND Anesthesiology
DX: Z01.818 Encounter for other preprocedural examination (principal); Z11.52 Encounter for screening for COVID-19

== ENCOUNTER 2021-12-10 11:53 | Day surgery (SDC) | payer BC ==
[~2021-12-10] VITALS: Ht 172.7 cm; Wt 71.1 kg
[~2021-12-10 11:53] MED LIST changes: +ceFAZolin SOD 2 GM in IV 1 EA IV ONE
[2021-12-10] MEDS ORDERED: SCOPOLAMINE 1MG TRANSDERMAL PATCH TOP ONE (12:20)
[2021-12-10] MEDS ORDERED: LR 1,000 ML IV SCH (12:20)
[2021-12-10] MEDS ORDERED: BUPIVACAINE HCL 0.25% 30ML VIAL As Ordered ONE (12:34)
[2021-12-10 12:45] LABS: HEMATOCRIT 41.4 % (36.0-47.0); HEMOGLOBIN 13.6 g/dl (12.0-15.5); MEAN CORPUSCULAR HEMOGLOBIN 30.7 pg (27.0-33.0); MEAN CORPUSCULAR HGB CONC 32.9 g/dl (32.0-36.5); MEAN CORPUSCULAR VOLUME 93.5 fl (80.0-96.0); PLATELET COUNT, AUTOMATED 350 10^3/uL (150-450); RED BLOOD COUNT 4.43 10^6/uL (4.00-5.40); WHITE BLOOD COUNT 9.7 10^3/uL (4.0-10.0)
[2021-12-10] MEDS ORDERED: ACETAMINOPHEN 1000MG 100ML IV BTL (OFIRMEV) (J0131 PER 10MG) As Ordered ONE (13:10)
[2021-12-10] MEDS ORDERED: fentaNYL 250 MCG/5 ML INJECTION As Ordered ONE (13:11)
[2021-12-10] MEDS ORDERED: propofoL 200 MG/20 ML VIAL As Ordered ONE (13:11)
[2021-12-10] MEDS ORDERED: KETOROLAC 60MG 2ML VIAL As Ordered ONE (13:11)
[2021-12-10] MEDS ORDERED: MIDAZOLAM INJ 2MG/2ML VIAL (J2250 PER 1MG) As Ordered ONE (13:11)
[2021-12-10] MEDS ORDERED: HYDROmorphone HCL 2MG/ML 1ML VIAL As Ordered ONE (13:11)
[2021-12-10] MEDS ORDERED: dexameTHASONE 4 MG/ML 1ML VIAL (J1100 PER 1MG) As Ordered ONE (13:11)
[2021-12-10] MEDS ORDERED: SUGAMMADEX SODIUM 500 MG/5 ML VIAL (BRIDION) As Ordered ONE (13:11)
[2021-12-10] MEDS ORDERED: LIDOCAINE 2% 100MG/5ML SDV (FOR ANES.) As Ordered ONE (13:11)
[2021-12-10] MEDS ORDERED: METOCLOPRAMIDE INJ 10MG/2ML VIAL (J2765 PER 1) As Ordered ONE (13:11)
[2021-12-10] MEDS ORDERED: ROCURONIUM BROMIDE 50 MG/5 ML VIAL As Ordered ONE ×2 (13:11→13:47)
[2021-12-10] MEDS ORDERED: ONDANSETRON 4MG 2ML VIAL As Ordered ONE (13:11)
[2021-12-10] MEDS ORDERED: LABETALOL 100MG/20ML VIAL As Ordered ONE (14:01)
[2021-12-10] MEDS ORDERED: fentaNYL 100 MCG/2 ML INJECTION IV PRN (15:05)
[2021-12-10] MEDS ORDERED: oxyCODONE 5MG TAB PO PRN (15:05)
[2021-12-10] MEDS ORDERED: ONDANSETRON 4MG 2ML VIAL IV PRN (15:05)
[2021-12-10] MEDS ORDERED: PERCOCET 5MG/325MG TAB PO PRN (15:55)
[2021-12-10 17:03] VITALS: BP 140/79
[2021-12-10] MEDS ORDERED: KETOROLAC 30 MG/ML 1ML VIAL IV SCH (20:00)
== END 2021-12-10 17:12 | disposition home or self-care (01) ==
LOC: M SDC 11:53
PROVIDERS: ATTEND Obstetrics & Gynecology
DX: N93.8 Other specified abnormal uterine and vaginal bleeding (principal); D25.9 Leiomyoma of uterus, unspecified
CPT/HCPCS: 36415; 58571; 81025; 85027; 86850; 86900; 86901; 88307; J0131; J0690; J1100; J1170; J1885; J2250; J2405; J2765; J3010; S2900

== ENCOUNTER → 2022-01-19 | Outpatient (CLI) | payer BC ==
[~2022-01-19] MED LIST changes: -ceFAZolin SOD 2 GM in IV 1 EA IV ONE
[2022-01-19 09:06] LABS: HEMATOCRIT 40.7 % (36.0-47.0); HEMOGLOBIN 13.7 g/dl (12.0-15.5); MEAN CORPUSCULAR HEMOGLOBIN 30.7 pg (27.0-33.0); MEAN CORPUSCULAR HGB CONC 33.7 g/dl (32.0-36.5); MEAN CORPUSCULAR VOLUME 91.3 fl (80.0-96.0); PLATELET COUNT, AUTOMATED 260 10^3/uL (150-450); RED BLOOD COUNT 4.46 10^6/uL (4.00-5.40); WHITE BLOOD COUNT 7.1 10^3/uL (4.0-10.0)
[2022-01-19 09:36] LABS: CHLORIDE LEVEL 101 MMOL/L (98-107); POTASSIUM SERUM 3.8 MMOL/L (3.5-5.1); SODIUM LEVEL 140 MMOL/L (136-145)
[2022-01-19 09:37] LABS: ALBUMIN 3.6 G/DL (3.2-5.2); CARBON DIOXIDE LEVEL 30 MMOL/L (20-31)
[2022-01-19 09:41] LABS: BLOOD UREA NITROGEN 12 MG/DL (9-23); GLUCOSE, FASTING 91 MG/DL (60-100); TRIGLYCERIDES LEVEL 90 MG/DL (<150)
[2022-01-19 09:42] LABS: ALKALINE PHOSPHATASE 57 U/L (46-116)
[2022-01-19 09:43] LABS: BILIRUBIN,TOTAL 0.6 MG/DL (0.3-1.2); CHOLESTEROL LEVEL 226 MG/DL (<200); CHOLESTEROL RISK RATIO 3.66 (<5); CREATININE FOR GFR 0.75 MG/DL (0.55-1.30); GLOMERULAR FILTRATION RATE > 60.0 (>58); HDL CHOLESTEROL 61.6 MG/DL (>40); LDL CHOLESTEROL 146.4 MG/DL (<100); NON-HDL-C 164 MG/DL
[2022-01-19 09:44] LABS: ALT/SGPT 21 U/L (7.0-40); AST/SGOT 23 U/L (<34); TOTAL PROTEIN 6.8 G/DL (5.7-8.2)
[2022-01-19 09:45] LABS: THYROID STIMULATING HORMONE 0.888 uIU/ML (0.55-4.78)
[2022-01-19 09:56] LABS: TOTAL 25(OH) VITAMIN D 36.2 NG/ML (20.0-100.0)
[2022-01-19 11:11] LABS: HEMOGLOBIN A1c 4.8 % (4.0-6.0)
== END ==
LOC: M LAB 08:24
PROVIDERS: ATTEND Family Medicine
DX: I10 Essential (primary) hypertension (principal)

== ENCOUNTER → 2022-06-14 | Outpatient (CLI) | payer BC | LOC: M WHC 14:03 | PROVIDERS: ATTEND Advanced Practice Midwife | DX: Z12.31 Encounter for screening mammogram for malignant neoplasm of breast (principal) ==

== ENCOUNTER → 2023-07-11 | Outpatient (CLI) | payer BC ==
[~2023-07-11] MED LIST changes: -ROSU20TA5 PO; +ROSU20TA61 PO
[2023-07-11 09:18] LABS: BASO # 0.1 10^3/uL (0.0-0.2); EOS # 0.6 10^3/uL (0.0-0.5); EOS % 9.2 % (0.0-3.0); HEMATOCRIT 41.3 % (36.0-47.0); HEMOGLOBIN 14.2 g/dl (12.0-15.5); LYMPH # 2.5 10^3/uL (1.5-5.0); MEAN CORPUSCULAR HEMOGLOBIN 30.9 pg (27.0-33.0); MEAN CORPUSCULAR HGB CONC 34.4 g/dl (32.0-36.5); MONO # 0.5 10^3/uL (0.0-0.8); MONO % 6.8 % (2.0-8.0); NEUTROPHILS # 3.3 10^3/uL (1.5-8.5); NEUTROPHILS % 46.9 % (36.0-66.0); PLATELET COUNT, AUTOMATED 284 10^3/uL (150-450); RED BLOOD COUNT 4.59 10^6/uL (4.00-5.40)
[2023-07-11 09:48] LABS: ALBUMIN 3.5 G/DL (3.2-5.2); ALKALINE PHOSPHATASE 51 U/L (46-116); ALT/SGPT 21 U/L (7.0-40); AST/SGOT 21 U/L (<34); BILIRUBIN,TOTAL 0.6 MG/DL (0.3-1.2); BLOOD UREA NITROGEN 13 MG/DL (9-23); CALCIUM LEVEL 8.9 MG/DL (8.5-10.1); CARBON DIOXIDE LEVEL 32 MMOL/L (20-31); CHLORIDE LEVEL 103 MMOL/L (98-107); CHOLESTEROL LEVEL 211 MG/DL (<200); CREATININE FOR GFR 0.73 MG/DL (0.55-1.30); GLOMERULAR FILTRATION RATE > 60.0 (>51); GLUCOSE, FASTING 91 MG/DL (60-100); HDL CHOLESTEROL 63.9 MG/DL (>40); LDL CHOLESTEROL 130.5 MG/DL (<100); NON-HDL-C 147.1 MG/DL; POTASSIUM SERUM 3.9 MMOL/L (3.5-5.1); SODIUM LEVEL 139 MMOL/L (136-145); TOTAL PROTEIN 6.7 G/DL (5.7-8.2); TRIGLYCERIDES LEVEL 83 MG/DL (<150)
[2023-07-11 09:49] LABS: FREE T4 1.12 NG/DL (0.89-1.76); THYROID STIMULATING HORMONE 1.404 uIU/ML (0.55-4.78)
== END ==
LOC: M LAB 08:12
PROVIDERS: ATTEND Physician Assistant
DX: I10 Essential (primary) hypertension (principal)

== ENCOUNTER → 2023-12-15 | Outpatient (CLI) | payer BC ==
[~2023-12-15] MED LIST changes: -ROSU20TA61 PO; +ROSU20TA86 PO
== END ==
LOC: M WHC 15:15
PROVIDERS: ATTEND Advanced Practice Midwife
DX: Z12.31 Encounter for screening mammogram for malignant neoplasm of breast (principal)

== ENCOUNTER → 2023-12-21 | Outpatient (CLI) | payer BC ==
[2023-12-21 09:33] LABS: BASO # 0.1 10^3/uL (0.0-0.2); EOS # 0.5 10^3/uL (0.0-0.5); EOS % 7.6 % (0.0-3.0); HEMATOCRIT 42.6 % (36.0-47.0); HEMOGLOBIN 14.1 g/dl (12.0-15.5); LYMPH # 2.8 10^3/uL (1.5-5.0); LYMPH % 41.1 % (24.0-44.0); MEAN CORPUSCULAR HEMOGLOBIN 30.4 pg (27.0-33.0); MEAN CORPUSCULAR HGB CONC 33.1 g/dl (32.0-36.5); MEAN CORPUSCULAR VOLUME 91.8 fl (80.0-96.0); MONO # 0.4 10^3/uL (0.0-0.8); MONO % 6.1 % (2.0-8.0); NEUTROPHILS # 2.9 10^3/uL (1.5-8.5); NEUTROPHILS % 44.1 % (36.0-66.0); PLATELET COUNT, AUTOMATED 333 10^3/uL (150-450); RED BLOOD COUNT 4.64 10^6/uL (4.00-5.40); WHITE BLOOD COUNT 6.7 10^3/uL (4.0-10.0)
[2023-12-21 10:04] LABS: ALBUMIN 3.6 G/DL (3.2-5.2); ALKALINE PHOSPHATASE 62 U/L (35-104); ALT/SGPT 20 U/L (7.0-40); AST/SGOT 18 U/L (<34); BILIRUBIN,TOTAL 0.5 MG/DL (0.3-1.2); BLOOD UREA NITROGEN 10 MG/DL (9-23); CALCIUM LEVEL 9.3 MG/DL (8.5-10.1); CARBON DIOXIDE LEVEL 30 MMOL/L (20-31); CHLORIDE LEVEL 107 MMOL/L (98-107); CHOLESTEROL LEVEL 262 MG/DL (<200); CHOLESTEROL RISK RATIO 4.96 (<5); CREATININE FOR GFR 0.79 MG/DL (0.55-1.30); GLOMERULAR FILTRATION RATE > 60.0 (>51); GLUCOSE, FASTING 70 MG/DL (60-100); HDL CHOLESTEROL 52.8 MG/DL (>40); LDL CHOLESTEROL 154.8 MG/DL (<100); NON-HDL-C 209.2 MG/DL; SODIUM LEVEL 141 MMOL/L (136-145); TOTAL PROTEIN 7.2 G/DL (5.7-8.2); TRIGLYCERIDES LEVEL 272 MG/DL (<150)
== END ==
LOC: M LAB 07:21
PROVIDERS: ATTEND Physician Assistant
DX: E78.2 Mixed hyperlipidemia (principal)

== ENCOUNTER → 2024-01-02 | Outpatient (CLI) | payer BC ==
[~2024-01-02] MED LIST changes: +HYDR-3490 PO; +LOSA50TA28 PO; +OMEP40CA5 PO; +ROSU5TAB49 PO
== END ==
LOC: M WHC 12:26
PROVIDERS: ATTEND Advanced Practice Midwife
DX: Z12.31 Encounter for screening mammogram for malignant neoplasm of breast (principal)

== ENCOUNTER 2024-01-08 07:58 | Day surgery (SDC) | payer BC ==
[~2024-01-08] VITALS: Ht 172.7 cm; Wt 72.6 kg
[~2024-01-08 07:58] MED LIST changes: +NS 250 ML IV ONE
[2024-01-08] MEDS ORDERED: LIDOCAINE 2% 100MG/5ML SDV (FOR ANES.) As Ordered ONE (09:30)
[2024-01-08] MEDS ORDERED: propofoL 200 MG/20 ML VIAL As Ordered ONE (09:30)
[2024-01-08 09:57] VITALS: TEMP 97.5
[2024-01-08 10:11] VITALS: BP 113/67; O2SAT 97
== END 2024-01-08 10:27 | disposition home or self-care (01) ==
LOC: M OPP 07:58
PROVIDERS: ATTEND Internal Medicine Gastroenterology
DX: Z12.11 Encounter for screening for malignant neoplasm of colon (principal); Z12.12 Encounter for screening for malignant neoplasm of rectum; K64.0 First degree hemorrhoids; K20.0 Eosinophilic esophagitis; K44.9 Diaphragmatic hernia without obstruction or gangrene; K31.89 Other diseases of stomach and duodenum; R12 Heartburn; K21.9 Gastro-esophageal reflux disease without esophagitis; I10 Essential (primary) hypertension; E78.00 Pure hypercholesterolemia, unspecified; Z79.899 Other long term (current) drug therapy; Z87.891 Personal history of nicotine dependence

== ENCOUNTER → 2024-03-21 | Outpatient (CLI) | payer BC ==
[~2024-03-21] MED LIST changes: -NS 250 ML IV ONE
[2024-03-21 08:38] LABS: BASO # 0.1 10^3/uL (0.0-0.2); BASO % 1.5 % (0.0-1.0); EOS # 0.5 10^3/uL (0.0-0.5); EOS % 8.8 % (0.0-3.0); HEMATOCRIT 41.1 % (36.0-47.0); HEMOGLOBIN 13.9 g/dl (12.0-15.5); LYMPH # 2.3 10^3/uL (1.5-5.0); LYMPH % 41.4 % (24.0-44.0); MEAN CORPUSCULAR HEMOGLOBIN 30.6 pg (27.0-33.0); MEAN CORPUSCULAR HGB CONC 33.8 g/dl (32.0-36.5); MEAN CORPUSCULAR VOLUME 90.5 fl (80.0-96.0); MONO # 0.4 10^3/uL (0.0-0.8); MONO % 7.7 % (2.0-8.0); NEUTROPHILS # 2.2 10^3/uL (1.5-8.5); NEUTROPHILS % 40.2 % (36.0-66.0); PLATELET COUNT, AUTOMATED 289 10^3/uL (150-450); RED BLOOD COUNT 4.54 10^6/uL (4.00-5.40); WHITE BLOOD COUNT 5.4 10^3/uL (4.0-10.0)
[2024-03-21 09:05] LABS: ALBUMIN 3.8 G/DL (3.2-5.2); ALKALINE PHOSPHATASE 61 U/L (35-104); ALT/SGPT 40 U/L (7.0-40); AST/SGOT 30 U/L (<34); BILIRUBIN,TOTAL 0.7 MG/DL (0.3-1.2); BLOOD UREA NITROGEN 16 MG/DL (9-23); CALCIUM LEVEL 9.2 MG/DL (8.5-10.1); CARBON DIOXIDE LEVEL 31 MMOL/L (20-31); CHLORIDE LEVEL 100 MMOL/L (98-107); CHOLESTEROL LEVEL 243 MG/DL (<200); CHOLESTEROL RISK RATIO 3.65 (<5); CREATININE FOR GFR 0.78 MG/DL (0.55-1.30); GLOMERULAR FILTRATION RATE > 60.0 (>51); GLUCOSE, FASTING 92 MG/DL (60-100); HDL CHOLESTEROL 66.5 MG/DL (>40); LDL CHOLESTEROL 161.7 MG/DL (<100); NON-HDL-C 176.5 MG/DL; POTASSIUM SERUM 4.1 MMOL/L (3.5-5.1); SODIUM LEVEL 141 MMOL/L (136-145); TOTAL PROTEIN 7.2 G/DL (5.7-8.2); TRIGLYCERIDES LEVEL 74 MG/DL (<150)
[2024-03-21 09:07] LABS: ESTRADIOL 44.8 PG/ML; FOLLICLE STIMULATING HORMONE 62.3 mIU/ML; LUTEINIZING HORMONE 41.8 mIU/ML
== END ==
LOC: M LAB 08:00
PROVIDERS: ATTEND Physician Assistant
DX: E78.2 Mixed hyperlipidemia (principal); K20.0 Eosinophilic esophagitis; N95.1 Menopausal and female climacteric states

== ENCOUNTER → 2025-01-10 | Outpatient (CLI) | payer BC | LOC: M WHC 15:22 | PROVIDERS: ATTEND Advanced Practice Midwife | DX: Z12.31 Encounter for screening mammogram for malignant neoplasm of breast (principal) ==